=== PATIENT | male | born 1995 | race African-American/Black ===

== ENCOUNTER 2022-07-07 19:02 | Emergency (ER) | payer OTHER ==
[~2022-07-07] VITALS: Ht 180.3 cm; Wt 104.5 kg
[2022-07-07 19:24] VITALS: TEMP 97
[2022-07-07 20:00] VITALS: BP 116/78; PULSE 67
== END 2022-07-07 20:00 | disposition home or self-care (01) ==
LOC: COL.ER 19:02
DX: Z20.2 Contact with and (suspected) exposure to infections with a predominantly sexual mode of transmission (principal); Z28.310 Unvaccinated for COVID-19